=== PATIENT | male | born 1980 ===

== ENCOUNTER 2018-05-20 12:46 | Emergency (ER) | payer OTHER ==
[2018-05-20 13:05] VITALS: RESP 18
--- NOTE | 2018-05-20 13:20 | ED PDOC ---
History of Present Illness History of Present Illness: 37 y/o male with no significant PMHx presents to the ED for evaluation of a fever associated with a non-productive cough and a mild sore throat, onset two days ago. Patient reports of developing chest pain only when coughing. Otherwise, patient denies shortness of breath. PMD: none provided HPI: Influenza Time Seen by Provider: 05/20/18 13:10 Chief Complaint: Fever Chief Complaint (Provider): Fever History Per: Patient Exam Limitations: no limitations Onset/Duration Of Symptoms: Days (x2) Symptoms include: fever, cough, chest pain Sick Contacts (Context): None Past Medical History Reviewed: Historical Data, Nursing Documentation, Vital Signs Vital Signs: Last Vital Signs Temp 102.6 F H 05/20/18 13:03 Pulse 104 H 05/20/18 13:03 Resp 18 05/20/18 13:03 BP 136/82 05/20/18 13:03 Pulse Ox 98 05/20/18 13:03 - Medical History PMH: No Chronic Diseases Denies: Chronic Kidney Disease - Surgical History Surgical History: No Surg Hx - Family History Family History: States: Unknown Family Hx - Home Medications Home Medications: Ambulatory Orders Medication Instructions Recorded Oseltamivir Cap [Tamiflu] 75 mg PO BID #10 cap 05/20/18 - Allergies Allergies/Adverse Reactions: Allergies Allergy/AdvReac Type Severity Reaction Status Date / Time No Known Allergies Allergy Verified 05/20/18 13:03 Review of Systems ROS Statement: Except As Marked, All Systems Reviewed And Found Negative Constitutional: Positive for: Fever Cardiovascular: Positive for: Chest Pain Respiratory: Positive for: Cough. Negative for: Shortness of Breath Physical Exam - Reviewed Nursing Documentation Reviewed: Yes Vital Signs Reviewed: Yes - Physical Exam Appears: Positive for: No Acute Distress Head Exam: Positive for: ATRAUMATIC, NORMOCEPHALIC Skin: Positive for: Normal Color, Warm, Dry Eye Exam: Positive for: Normal appearance, EOMI, PERRL Neck: Positive for: Normal, Painless ROM, Supple Cardiovascular/Chest: Positive for: Regular Rate, Rhythm. Negative for: Murmur Respiratory: Positive for: Normal Breath Sounds. Negative for: Respiratory Distress Gastrointestinal/Abdominal: Positive for: Normal Exam, Soft. Negative for: Tenderness Extremity: Positive for: Normal ROM. Negative for: Deformity Neurologic/Psych: Positive for: Alert, Oriented. Negative for: Motor/Sensory Deficits Medical Decision Making Medical Decision Making: Time: 1316 Impression: Rule out flu Plan: -- CXR Two Views -- Influenza A B Scribe Attestation: Documented by Jacob Dinh, acting as a scribe for Leonardo Mcgregor MD. Provider Scribe Attestation: All medical record entries made by the Scribe were at my direction and personally dictated by me. I have reviewed the chart and agree that the record accurately reflects my personal performance of the history, physical exam, medical decision making, and the department course for this patient. I have also personally directed, reviewed, and agree with the discharge instructions and disposition. - ECG O2 Sat by Pulse Oximetry: 98 (RA) Pulse Ox Interpretation: Normal Disposition - Clinical Impression Clinical Impression: Influenza A - Patient ED Disposition Is Patient to be Admitted: No Counseled Patient/Family Regarding: Studies Performed, Diagnosis, Need For Followup, Rx Given - Disposition [facility]errals: [facility] [Outside] Disposition: Routine/Home Disposition Time: 14:33 Condition: FAIR Prescriptions: Oseltamivir Cap [Tamiflu] 75 mg PO BID #10 cap Instructions: Flu, Adult (DC) Forms: [facility] ([employer]) Print Language: TURKMEN
--- NOTE | 2018-05-20 14:34 | RAD ---
Date of service: 05/20/2018 HISTORY: Cough. COMPARISON: No prior. TECHNIQUE: Chest PA and lateral FINDINGS: LUNGS: Asymmetric retrocardiac pulmonary markings partially obscured by the heart. Findings are not confirmed on the lateral view. PLEURA: No significant pleural effusion identified. No pneumothorax apparent. CARDIOVASCULAR: No aortic atherosclerotic calcification present. Normal cardiac size. No pulmonary vascular congestion. OSSEOUS STRUCTURES: No significant abnormalities. VISUALIZED UPPER ABDOMEN: Normal. OTHER FINDINGS: None. IMPRESSION: Possible left lower lobe infiltrate/pneumonia.
[2018-05-20 14:41] VITALS: BP 118/69; PULSE 88; TEMP 100.3; O2SAT 95
== END 2018-05-20 14:40 | disposition home or self-care (01) ==
LOC: H.ER 12:46
DX: J11.1 Influenza due to unidentified influenza virus with other respiratory manifestations (principal)